=== PATIENT | female | born 1980 | race Caucasian/White ===

== ENCOUNTER 2016-10-30 01:14 | Inpatient (IN) | payer OTHER ==
[~2016-10-30] VITALS: Ht 162.6 cm; Wt 127.7 kg
[2016-10-30] MEDS ORDERED: NEWBORN KIT ONE ×2 (01:44→02:17)
[2016-10-30 01:48] VITALS: BP 138/63
[2016-10-30] MEDS: D5%-LACTATED RINGERS 1,000 ML IV SCH ×3 (02:01→18:01)
[2016-10-30] MEDS: LACTATED RINGERS 1,000 ML IV SCH ×3 (02:01→18:01)
[2016-10-30] MEDS ORDERED: OXYTOCIN 30U/ 0.9% NaCL 500ML 500 ML IV ONE (02:01)
[2016-10-30] MEDS ORDERED: FENTANYL PF 100 MCG/2ML IV PRN (02:30)
[2016-10-30] MEDS ORDERED: CALCIUM CARBONATE 500 MG TAB.CHEW PO PRN ×3 (02:30→15:30)
[2016-10-30] MEDS ORDERED: ONDANSETRON 2MG/ML, 2ML ONE ×2 (03:21→07:55)
[2016-10-30] MEDS: ONDANSETRON 2MG/ML, 2ML IVPush PRN ×2 (03:25→07:56)
[2016-10-30] MEDS ORDERED: OXYTOCIN 30U/ 0.9% NaCL 500ML 500 ML ONE (05:00)
[2016-10-30] MEDS: LEVOTHYROXINE 175 MCG TABLET PO SCH (05:51)
[2016-10-30 05:59] VITALS: BP 138/63
[2016-10-30] MEDS ORDERED: LEVO175T5 PO (05:59)
[2016-10-30] MEDS ORDERED: PREN1TAB60 PO (05:59)
[2016-10-30] MEDS ORDERED: OMEP-110 PO (05:59)
[2016-10-30] MEDS ORDERED: FENTANYL PF 100 MCG/2ML ONE (07:35)
[2016-10-30] MEDS: FENTANYL PF 100 MCG/2ML IVPush PRN ×4 (07:50→18:41)
[2016-10-30] MEDS ORDERED: FENTANYL/BUPIV./NS/PF 250 ML EPIDCONT ONE (08:32)
[2016-10-30] MEDS ORDERED: BUPIVACAINE/PF 0.25% ONE (08:32)
[2016-10-30] MEDS ORDERED: LIDOCAINE/PF 1.5%-EPI 1:200K, 30ML ONE (08:32)
[2016-10-30] MEDS ORDERED: OXYTOCIN 30U/ 0.9% NaCL 500ML 500 ML IV PRN (10:39)
[2016-10-30] MEDS ORDERED: CALCIUM CARBONATE 500 MG TAB.CHEW ONE (10:41)
[2016-10-30] MEDS: OXYTOCIN 30U/ 0.9% NaCL 500ML 500 ML IV SCH (15:18)
[2016-10-30] MEDS ORDERED: DOCUSATE 100 MG CAPSULE PO PRN (15:30)
[2016-10-30] MEDS ORDERED: MISOPROSTOL 200 MCG TABLET PR PRN (15:30)
[2016-10-30] MEDS ORDERED: OXYcodone/APAP 5/325MG TABLET PO PRN (15:30)
[2016-10-30] MEDS ORDERED: ONDANSETRON 2MG/ML, 2ML IV PRN (15:30)
[2016-10-30] MEDS ORDERED: DIPH,PERTUSS(ACELL),TET VAC/PF NC IM-VACC PRN (15:30)
[2016-10-30] MEDS ORDERED: OXYcodone IR 5MG TABLET PO PRN ×2 (15:30)
[2016-10-30 16:00] VITALS: BP 118/52
[2016-10-30 19:45] VITALS: BP 100/57
[2016-10-31] VITALS: BP 97/62
[2016-10-31] MEDS: OXYTOCIN 30U/ 0.9% NaCL 500ML 500 ML IV SCH ×2 (01:18→11:18)
[2016-10-31] MEDS: OXYcodone/APAP 5/325MG TABLET PO PRN ×3 (04:13→14:28)
[2016-10-31] MEDS: IBUPROFEN 600 MG TABLET PO PRN ×2 (04:13→14:28)
[2016-10-31 04:14] VITALS: BP 107/66
[2016-10-31] MEDS: LEVOTHYROXINE 175 MCG TABLET PO SCH (06:42)
[2016-10-31 08:00] VITALS: BP 101/57
[2016-10-31] MEDS ORDERED: PRENATAL VIT/IRON/FA 1 EACH TABLET PO SCH (09:00)
[2016-10-31 19:30] VITALS: BP 106/66
[2016-11-01] MEDS: IBUPROFEN 600 MG TABLET PO PRN (04:28)
[2016-11-01] MEDS: OXYcodone/APAP 5/325MG TABLET PO PRN (04:28)
[2016-11-01] MEDS: LEVOTHYROXINE 175 MCG TABLET PO SCH (06:26)
[2016-11-01 08:30] VITALS: BP 133/67
[2016-11-01] MEDS ORDERED: IBUP800T PO (09:45)
[2016-11-01] MEDS ORDERED: DOCU-30 PO (09:46)
[2016-11-01] MEDS ORDERED: OXYC-302 PO (09:47)
[2016-11-01] MEDS ORDERED: FERR325T75 PO (09:47)
== END 2016-11-01 10:50 | disposition home or self-care (01) | DRG 775 ==
LOC: LDOP 01:14 → LDIP 02:07 → 2NW 17:30
PROVIDERS: ADMIT Student in an Organized Health Care Education/Training Program; ATTEND Student in an Organized Health Care Education/Training Program
PROC: 10E0XZZ Delivery of Products of Conception, External Approach (ICD-10-PCS; principal; 2016-10-30)
PROC: 0HQ9XZZ Repair Perineum Skin, External Approach (ICD-10-PCS; 2016-10-30)
PROC: 00HU33Z Insertion of Infusion Device into Spinal Canal, Percutaneous Approach (ICD-10-PCS; 2016-10-30)
PROC: 3E0R3CZ (ICD-10-PCS; 2016-10-30)
DX: O99.214 Obesity complicating childbirth (principal); Z68.42 Body mass index [BMI] 45.0-49.9, adult; E66.01 Morbid (severe) obesity due to excess calories; Z37.0 Single live birth; K21.9 Gastro-esophageal reflux disease without esophagitis; O99.62 Diseases of the digestive system complicating childbirth; O99.284 Endocrine, nutritional and metabolic diseases complicating childbirth; E03.9 Hypothyroidism, unspecified; O42.92 Full-term premature rupture of membranes, unspecified as to length of time between rupture and onset of labor; O76 Abnormality in fetal heart rate and rhythm complicating labor and delivery; O77.0 Labor and delivery complicated by meconium in amniotic fluid; Z3A.39 39 weeks gestation of pregnancy; Z79.899 Other long term (current) drug therapy; Z90.49 Acquired absence of other specified parts of digestive tract; Z88.0 Allergy status to penicillin; Z91.02 Food additives allergy status; Z91.011 Allergy to milk products; Z87.442 Personal history of urinary calculi; O70.0 First degree perineal laceration during delivery; O90.81 Anemia of the puerperium; D64.9 Anemia, unspecified
CPT/HCPCS: 36415; 85025; 86850; 86900; 89060; J2405; J3010; J2590; Q0114